=== PATIENT | male | born 1995 | race Caucasian/White ===

== ENCOUNTER → 2016-08-14 | Outpatient (CLI) | payer OTHER | LOC: BMCIMAGING 15:20 | PROVIDERS: ATTEND Emergency Medicine | DX: S69.92XA Unspecified injury of left wrist, hand and finger(s), initial encounter (principal) ==

== ENCOUNTER 2018-04-18 11:00 | Inpatient (IN) | payer OTHER ==
[~2018-04-18 11:00] MED LIST: VANCOMYCIN 1 GM in NS 250 ML IV ONE; VANCOMYCIN HCL/NORMAL SALINE 250 ML IV ONE; VANCOMYCIN PHARMACY TO DOSE MISC ONE
[2018-04-18] MEDS ORDERED: ACETAMINOPHEN 500 MG TAB PO ONE (12:24)
[2018-04-18] MEDS ORDERED: GABAPENTIN 300 MG CAP PO ONE (12:24)
[2018-04-18] MEDS ORDERED: LR 1,000 ML IV ONE (12:25)
[2018-04-18] MEDS ORDERED: LIDOCAINE 1% 2 ML INJ ID PRN (12:25)
[2018-04-18] MEDS ORDERED: CHLORHEXIDINE GLUC HIBICLENS 118 ML BTL TP ONE (13:24)
[2018-04-18] MEDS ORDERED: BUPIVACAINE/EPI 0.25% 30 ML SDV ONE (13:24)
[2018-04-18] MEDS ORDERED: THROMBIN (BOVINE) 5,000 UNIT VIAL TP ONE (13:24)
[2018-04-18] MEDS ORDERED: BACITRACIN 50,000 UNITS/10 ML SYR IRR ONE (13:24)
--- NOTE | 2018-04-18 14:19 | PDHPUP ---
History & Physical Update H&P update statement: This history and physical update is based on an assessment of the patient which was completed after admission or registration (within 24 hours), but prior to the surgery/procedure. H&P update: H&P reviewed & patient examined, no change in patient's condition since H&P completed
[2018-04-18] MEDS ORDERED: MIDAZOLAM 2 MG/2 ML VIAL IVP ONE (14:41)
--- NOTE | 2018-04-18 14:41 | PDANEPAE ---
ANE History of Present Illness Tarlov Cyst L5-S2 ANE Past Medical History - Cardiovascular History Hx Hypertension: No Hx Arrhythmias: No Hx Chest Pain: No Hx Coronary Artery / Peripheral Vascular Disease: No Hx CHF / Valvular Disease: No Hx Palpitations: No - Pulmonary History Hx COPD: No Hx Asthma/Reactive Airway Disease: No Hx Recent Upper Respiratory Infection: No Hx Oxygen in Use at Home: No Hx Sleep Apnea: No Sleep Apnea Screening Result - Last Documented: Negative - Neurologic History Hx Cerebrovascular Accident: No Hx Seizures: No Hx Dementia: No - Endocrine History Hx Diabetes: No Hypothyroid: No Hyperthyroid: No Obesity: no - Renal History Hx Renal Disorders: No Renal History Comment: URGENCY & OCCAS LEAKAGE W/CURRENT TUMOR - Liver History Hx Hepatic Disorders: No - Neurological & Psychiatric Hx Hx Neurological and Psychiatric Disorders: No - Cancer History Hx Cancer: No - Congenital Disorder History Hx Congenital Disorders: No - GI History GERD: no Hx Gastrointestinal Disorders: No Gastrointestinal History Comment: SENSIVIVE STOMACH - EASILY BECOMES NAUSEOUS - Other Health History Other Health History: NEG - Chronic Pain History Chronic Pain: No (CYST PAIN DOWN BACK OF LEGS) - Surgical History Prior Surgeries: BRAEDEN REMOVED FROM ESOPHAGUS. WISDOM TEETH ANE Review of Systems Review of systems is: negative Review of Systems: - Exercise capacity Exercise capacity: >=4 METS METS (RN): 5 METS ANE Patient History - Allergies Allergies/Adverse Reactions: amoxicillin Allergy (Verified 04/03/18 11:09) Other-Enter Comments Penicillins Allergy (Verified 04/03/18 11:09) Other-Enter Comments - Home Medications Home medications: home medication list seen and reviewed Home Medications: Cholecalciferol Vit D3 [Vitamin D3 2000 units tab (OTC)] 2,000 units PO DAILY [Last Taken 04/11/18] Loratadine 10 mg PO DAILY PRN 04/03/18 [Last Taken 03/19/18] Melatonin [Melatonin 3 MG (*)] 1 mg PO HS 04/18/18 [Last Taken Unknown] - NPO status NPO Status: no food or drink >8 hours NPO Since - Liquids (Date): 04/18/18 NPO Since - Liquids (Time): 07:00 NPO Since - Solids (Date): 04/17/18 NPO Since - Solids (Time): 21:00 - Anes Hx Anes Hx: no prior problems - Smoking Hx Smoking Status: Former smoker - Family Anes Hx Family Hx Anesthesia Complications: SISTER & DAD HAD ADVERSE EFFECTS W/VICODIN ANE Labs/Vital Signs - Vital Signs Vital Signs: reviewed preoperatively; see RN documention for details Blood Pressure: 127/77 Heart Rate: 79 Respiratory Rate: 20 O2 Sat (%): 98 Height: 181.61 cm Weight: 64.864 kg ANE Physical Exam - Airway Neck exam: FROM Mallampati Score: Class 1 Mouth exam: normal dental/mouth exam - Pulmonary Pulmonary: no respiratory distress - Cardiovascular Cardiovascular: regular rate and rhythym - ASA Status ASA Status: I ANE Anesthesia Plan Anesthesia Plan: general endotracheal anesthesia
[2018-04-18] MEDS ORDERED: PROPOFOL 200 MG/20 ML VIAL ONE (14:43)
[2018-04-18] MEDS ORDERED: fentaNYL 100 MCG/2 ML INJ ONE (14:43)
[2018-04-18] MEDS ORDERED: ONDANSETRON 4 MG/2 ML VIAL ONE ×2 (14:44)
[2018-04-18] MEDS ORDERED: LIDOCAINE 2% 5 ML SDV ONE (14:44)
[2018-04-18] MEDS ORDERED: ROCURONIUM 50 MG/5 ML VIAL ONE (14:44)
[2018-04-18] MEDS ORDERED: DEXAMETHASONE 4 MG/ML VIAL ONE ×2 (14:44)
[2018-04-18] MEDS ORDERED: PROPOFOL/EMULSION 500 MG/50 ML BOTTLE IV ONE ×2 (14:50→16:13)
[2018-04-18] MEDS ORDERED: LIDOCAINE 1% 2 ML INJ ONE (15:08)
[2018-04-18] MEDS ORDERED: AVITENE POWDER 1 GM JAR TP ONE (16:29)
[2018-04-18] MEDS ORDERED: NS 1,000 ML IV SCH (17:00)
[2018-04-18] MEDS ORDERED: LACTULOSE 20 GM/30 ML UDCUP PO PRN (17:00)
[2018-04-18] MEDS ORDERED: BISACODYL 10 MG SUPP PR PRN (17:00)
[2018-04-18] MEDS ORDERED: MAGNESIUM HYDROXIDE 30 ML UDCUP PO PRN (17:00)
[2018-04-18] MEDS ORDERED: ZOLPIDEM TARTRATE 5 MG TAB PO PRN (17:00)
[2018-04-18] MEDS ORDERED: CETIRIZINE 10 MG TAB PO PRN (17:00)
--- NOTE | 2018-04-18 17:12 | SOAPPROG ---
BIN Progress Note Assessment/Plan: Assessment: 22 yo M sp L5-S3 laminectomy with resection of arachnoid cyst Plan: stable hob flat until 04/23 with lumbar drain please drain 10-20 ml/hour from lumbar drain lovenox starts POD #1 please call with neuro changes 04/18/18 17:10 Subjective: + back pain, no leg pain. Objective: Vital Signs Temp Pulse Resp BP Pulse Ox 37.0 C 79 20 127/77 H 98 04/18/18 12:29 04/18/18 14:58 04/18/18 14:58 04/18/18 14:58 04/18/18 14:58 somnolent PERRL no facial droop 5/5 + light touch ICD10 Worksheet Patient Problems: Problems Problem Status Onset Arachnoid cyst of spine Acute - ICD10 Problem Qualifiers (1) Arachnoid cyst of spine
[2018-04-18] MEDS ORDERED: NALOXONE HCL 0.4 MG/ML INJ IVP PRN (17:18)
[2018-04-18] MEDS ORDERED: ONDANSETRON 4 MG/2 ML VIAL IVP PRN (17:18)
[2018-04-18] MEDS ORDERED: HYDROmorphONE/DILAUDID 1 MG/ML INJ IVP PRN (17:18)
[2018-04-18] MEDS ORDERED: fentaNYL 100 MCG/2 ML INJ IVP PRN (17:18)
[2018-04-18] MEDS ORDERED: DEXAMETHASONE 4 MG/ML VIAL IVP PRN (17:18)
--- NOTE | 2018-04-18 17:18 | POSTANESTH ---
Post Anesthetic Evaluation Cardiovascular Status: Normal, Stable Respiratory Status: Normal, Stable Level of Consciousness/Mental Status: Mildly Sleepy, Arousable Pain Control: Adequate, Prn Tx Ordered Nausea/Vomiting Control: Adequate, Prn Tx Ordered Complications Possibly Related to Anesthesia: None Noted
[2018-04-18] MEDS: FAMOTIDINE 20 MG TAB PO SCH (20:35)
[2018-04-18] MEDS: SENNOSIDES/DOCUSATE SODIUM TAB PO SCH (20:35)
[2018-04-18] MEDS: POLYETHYLENE GLYCOL 3350 17 GM PKT PO SCH (20:36)
[2018-04-18] MEDS: oxyCODONE IR 5 MG TAB PO PRN (21:08)
--- NOTE | 2018-04-18 22:07 | PDMN ---
Medical Necessity Medical necessity: Pt meets inpt criteria per MD order and [facility] [place] [facility], Lumbar Laminectomy, Medicare inpt only list. 22 y/o w/Tarlov cyst L5-S2 admitted for L5 -S3 laminectomy w/resection of arachnoid cyst, post-op care, est LOS>2MN.
[2018-04-19] MEDS: oxyCODONE IR 5 MG TAB PO PRN ×7 (00:23→23:12)
[2018-04-19] MEDS: diphenhydrAMINE 25 MG CAP PO PRN ×2 (00:23→12:39)
[2018-04-19] MEDS: VANCOMYCIN HCL/NORMAL SALINE 250 ML IV SCH ×2 (00:34→13:21)
--- NOTE | 2018-04-19 06:02 | NEUSURGPN ---
Assessment/Plan: Assessment: 22 yo M sp L5-S3 laminectomy with resection of arachnoid cyst Plan: stable hob flat until 04/23 with lumbar drain. okay to roll from side to side, bend knees please drain 10-20 ml/hour from lumbar drain lovenox starts POD #1, HOLD lovenox on 04/22 in prep for removing LD Bowel protocol pulmonary toilet please call with neuro changes Subjective: low back stiffness and ache. Denies any new leg pain, numbness, tingling or weakness. Objective: NAD A&Ox3 MAEx4 5/ and equal in BUE an BLE. incision c/d/i, flat. LD site clean and dry Catheter Insertion Date: 04/18/18 - Physician Discussed Patient with : [facility] Physical Exam - Vitals, I&O, Labs I and O 04/18/18 04/19/18 04/20/18 05:59 05:59 05:59 Output Total 151 Balance -151 Weight 64.864 kg Output: CSF Drainage Amount 151 Lumbar Drain 151 Vital Signs Temp Pulse Resp BP Pulse Ox 36.8 C 45 L 12 98/41 L 92 04/18/18 20:00 04/19/18 05:00 04/19/18 05:00 04/19/18 05:00 04/19/18 05:00 Laboratory Results 04/18/18 17:46 ICD10 Worksheet Patient Problems: Problems Problem Status Onset Arachnoid cyst of spine Acute
--- NOTE | 2018-04-19 06:40 | GOP ---
DATE OF OPERATION: 04/18/2018 SURGEON: Bennie Alcantara MD NEUROSURGEON: Bennie Alcantara MD. CABINET PROFESSIONAL: Nestor Lynn PA-C. ANESTHESIA: General endotracheal. PREOPERATIVE DIAGNOSIS: Large, compressive Tarlov cyst with progressive loss of neurologic function in the lower extremities. POSTOPERATIVE DIAGNOSIS: Large, compressive Tarlov cyst with progressive loss of neurologic function in the lower extremities. PROCEDURE PERFORMED: L5 and S1 laminectomies for open biopsy/resection of Tarlov cyst wall. Placeme nt of lumbar drain for therapeutic drainage of cerebral spinal fluid. Use of intraoperative microsco py and fluoroscopy. FINDINGS: ESTIMATED BLOOD LOSS: Trace. INDICATIONS: The patient is a 22-year-old man with progressive weakness and numbness in his lower ex tremities secondary to a very large Tarlov cyst causing significant erosion in the sacrum and mitul tyrone of the nerve root sleeves and thecal sac. He has failed extensive conservative care, and after detailed discussions with multiple neurosurgeons including all of my group and a professor at [employer], i t was felt to be in the best interest of the patient to explore the lesion and possibly drain it/rese ct it. The patient presents now for just that. DESCRIPTION OF PROCEDURE: After informed consent was obtained, the patient was taken to the operatin g room and placed in the prone position on the Minh frame. The lumbosacral area was prepped and dr aped in a sterile fashion. After fluoroscopic localization of the correct levels, the subcutaneous a nd intramuscular tissues were infiltrated with local anesthesia. A midline linear incision was then created over the L5 and S1 spinous processes. This was carried down to the fascial layer which was i ncised using monopolar electrocautery and carried in a subperiosteal plane along the spinous processe s and laminae bilaterally. Intraoperative fluoroscopy was again utilized to verify the correct level s. Following this, L5 and S1 laminectomies were performed, and an extremely large Tarlov cyst was id entified. The laminectomy defect was extended up to the inferior L4 area where there was normal dura . I attempted to find a communication between the cyst and the normal dura, but could not locate thi s and actually called two of my partners in to look at the lesion. Drs. João Rosas and Rodney Wynne came in, and we all looked at the films and the lesion under the microscope and determined that it w as in the best interest of the patient to open the cyst. This was performed, and the compressed thec al sac and nerve root sleeves were identified, but no further drainage of spinal fluid and no communi cation between the cyst and the normal dura were identified. The cyst wall was resected in its entir ety or as much as I could see anyway under high-power microscopy, and the remaining normal dura and n erve roots were intact. A lumbar drain had been placed in the standard fashion up at the L3-4 level prior to starting the surgery. The wound was then copiously irrigated with antibiotic irrigation, an d meticulous hemostasis was achieved. The paraspinal musculature was reapproximated gently with inte rrupted 0 Vicryl sutures. The fascia was then closed with running 0 Vicryl sutures, followed by inte rrupted subcutaneous Vicryl sutures and Dermabond on the skin. COMPLICATIONS: None. DISPOSITION: The patient is currently in the process of being repositioned for extubation. /[id number]/MODL
[2018-04-19] MEDS: FAMOTIDINE 20 MG TAB PO SCH ×2 (08:06→19:08)
[2018-04-19] MEDS: SENNOSIDES/DOCUSATE SODIUM TAB PO SCH ×2 (08:06→19:08)
[2018-04-19] MEDS: ENOXAPARIN 40 MG/0.4 ML SYR SC SCH (08:06)
[2018-04-19] MEDS: METHOCARBAMOL 750 MG TAB PO PRN ×3 (08:06→20:00)
[2018-04-19] MEDS: POLYETHYLENE GLYCOL 3350 17 GM PKT PO SCH ×3 (08:07→23:14)
--- NOTE | 2018-04-19 11:43 | GCON ---
DYE JIG OPERATOR CONSULTATION REASON FOR CONSULTATION: Patient examined postoperatively after receiving an L5 to S3 laminectomy wi th resection of arachnoid cyst. HISTORY: The patient is a 22-year-old white male without past medical history. He is, again, examin ed postoperatively after receiving an L5 to S3 laminectomy with resection of his arachnoid cyst. He is on bedrest for the next 5 days. In discussion with the patient, he states that overall he is doin g quite well. He states the pain is reasonably well tolerated. He is more comfortable lying on his left side. He denies any cough or production of sputum. There is no chest pain, pleuritic-type ches t pain or angina equivalent. There is no fever or night sweats. Overall, he is resting comfortably. REVIEW OF SYSTEMS: A 10-point review of systems is performed and negative, except for what is listed in the HPI. PAST MEDICAL HISTORY: None. ALLERGIES: Amoxicillin and penicillin. FAMILY HISTORY: Noncontributory. CURRENT MEDICATIONS: Include Tylenol, Dulcolax, Celebrex, Zyrtec, Benadryl, Lovenox, Pepcid, Neuront in, lactulose, milk of magnesia, Robaxin, Versed p.r.n., Zofran p.r.n., oxycodone, MiraLAX, Senokot, vancomycin, and Ambien. PHYSICAL EXAM: VITAL SIGNS: Blood pressure is 92/41. Pulse is 52, respirations 15. He is afebrile , oxygen saturation 93% on room air. GENERAL: He is a well-developed, well-nourished 22-year-old [facility] male who is resting comfortably, in no acute distress. HEENT: Eyes are PERRL, EOMI. Throat mara ws no erythema or tonsillar hypertrophy. NECK: Supple. There is no cervical adenopathy. HEART: R egular rate and rhythm, without murmurs, rubs, or gallops. LUNGS: Clear to auscultation. No wheeze s or rhonchi. ABDOMEN: Soft, nontender. Bowel sounds are present. EXTREMITIES: No clubbing, cyan osis, or edema. LABORATORIES: Creatinine 1.2. No other labs are available. IMPRESSION: 1. Status post L5 to S3 laminectomy with resection of arachnoid cyst. 2. Respiratory, stable. 3. Pain, well tolerated. RECOMMENDATIONS: 1. Continue adequate pain control. 2. DVT and PE prophylaxis. 3. Stress ulcer prophylaxis. 4. Aggressive pulmonary toilet. 5. His head of bed will be flat until April 23. /[id number]/MODL
--- NOTE | 2018-04-19 11:43 | ASMTCMCOM ---
CM Note CM Note Notes: Pt is a 22 y/o male admitted for arachnoid cyst of spine. Therapies have been ordered an awaiting recommendations. Anticipate that pt will d/c independent when medically stable. CM available for needs. Plan: Independent Date Signed: 04/19/2018 11:43 AM Electronically Signed By:MYAH Medina
[2018-04-19] MEDS: ACETAMINOPHEN 500 MG TAB PO SCH ×2 (16:55→23:13)
[2018-04-20] MEDS: oxyCODONE IR 5 MG TAB PO PRN ×6 (03:03→23:14)
[2018-04-20] MEDS: METHOCARBAMOL 750 MG TAB PO PRN ×4 (05:09→20:09)
--- NOTE | 2018-04-20 08:17 | NEUSURGPN ---
Date of Surgery: 04/18/18 Post Op Day: 2 Assessment/Plan: Assessment: 22 yo M sp L5-S3 laminectomy with resection of arachnoid cyst Plan: -neuro stable -hob flat until 04/23 with lumbar drain. okay to roll from side to side, bend knees -please drain 10-20 ml/hour from lumbar drain -lovenox starts POD #1, HOLD lovenox on 04/22 in prep for removing LD -Bowel protocol -pulmonary toilet -please call with neuro changes Subjective: Awake and alert. NAD. Eating/drinking and voiding. No f/c/n/v/d. Objective: NAD A&Ox3 MAEx4 5/ and equal in BUE an BLE. incision c/d/i, flat. LD site clean and dry Neuro Check Frequency: per routine Urinary Catheter in Place: No Urinary Catheter Indication: Other (Use Comment) (bed confined) Catheter Insertion Date: 04/18/18 - Physician Discussed Patient with : [facility] Physical Exam - Vitals, I&O, Labs I and O 04/19/18 04/20/18 04/21/18 05:59 05:59 05:59 Intake Total 2190 3350 Output Total 1801 3128 32 Balance 389 222 -32 Weight 64.864 kg Intake: Oral (ml) 750 2900 IV Intake (ml) 1440 450 Output: Urine (ml) 1650 2800 Catheter 1650 2800 CSF Drainage Amount 151 328 32 Lumbar Drain 151 328 32 Vital Signs Temp Pulse Resp BP Pulse Ox 37.1 C 56 L 13 112/61 97 04/20/18 00:00 04/20/18 07:00 04/20/18 07:00 04/20/18 07:00 04/20/18 07:00 Laboratory Results 04/18/18 17:46 ICD10 Worksheet Patient Problems: Problems Problem Status Onset Arachnoid cyst of spine Acute
[2018-04-20] MEDS: ACETAMINOPHEN 500 MG TAB PO SCH ×3 (08:59→23:57)
[2018-04-20] MEDS: FAMOTIDINE 20 MG TAB PO SCH ×2 (09:00→20:10)
[2018-04-20] MEDS: SENNOSIDES/DOCUSATE SODIUM TAB PO SCH ×2 (09:00→20:09)
[2018-04-20] MEDS: ENOXAPARIN 40 MG/0.4 ML SYR SC SCH (09:00)
[2018-04-20] MEDS: POLYETHYLENE GLYCOL 3350 17 GM PKT PO SCH ×3 (09:01→23:09)
--- NOTE | 2018-04-20 09:19 | PDINTPN ---
Security Systems Specialist Progress Note Assessment/Plan: Assessment/plan: * Back pain * Status post L5 that S3 laminectomy with resection of an arachnoid cyst -continue bedrest till 04/23 * Pain-well controlled * VTE prophylaxis * Stress ulcer prophylaxis * Nutrition-adequate Subjective: Resting comfortably Objective: Vital Signs Temp Pulse Resp BP Pulse Ox 37.1 C 53 L 11 L 102/51 L 92 04/20/18 00:00 04/20/18 09:00 04/20/18 09:00 04/20/18 09:00 04/20/18 09:00 Laboratory Results 04/18/18 17:46 04/19/18 04/20/18 04/21/18 05:59 05:59 05:59 Intake Total 2190 3350 Output Total 1801 3128 69 Balance 389 222 -69 - Time Spent With Patient Time Spent With Patient: 25 min of time spent with patient, over 1/2 involved with coordination of care or counseling Physical Exam - Physical Exam General Appearance: WD/WN, alert, no apparent distress EENT: PERRL/EOMI Neck: non-tender, supple Respiratory: chest non-tender, lungs clear, normal breath sounds Cardiac/Chest: normal peripheral pulses, regular rate, rhythm Peripheral Pulses: 2+: carotid (R), carotid (L), femoral (R), femoral (L), dorsalis-pedis (R), dorsalis-pedis (L) Abdomen: normal bowel sounds, non-tender, soft Male Genitalia: deferred Rectal: deferred Skin: normal color, warm/dry Extremities: non-tender Neuro/Psych: no motor/sensory deficits, alert, normal mood/affect, oriented x 3 ICD10 Worksheet Patient Problems: Problems Problem Status Onset Arachnoid cyst of spine Acute
--- NOTE | 2018-04-20 15:38 | ASMTCMCOM ---
CM Note CM Note Notes: 04/20/2018 Case Management Note Discussed pt during rounds this morning. Pt is on bedrest until 04/23. Awaiting therapy evals before creating discharge plan. Case Management d/c poc: to be determined. Case Management to follow. Date Signed: 04/20/2018 03:38 PM Electronically Signed By:Libby Wilson RN
[2018-04-20] MEDS: ONDANSETRON 4 MG/2 ML VIAL IVP PRN (20:15)
[2018-04-21] MEDS: METHOCARBAMOL 750 MG TAB PO PRN ×4 (01:59→20:11)
[2018-04-21] MEDS: oxyCODONE IR 5 MG TAB PO PRN ×5 (03:14→20:10)
[2018-04-21] MEDS: ACETAMINOPHEN 500 MG TAB PO SCH ×2 (08:05→16:09)
[2018-04-21] MEDS: FAMOTIDINE 20 MG TAB PO SCH ×2 (09:36→20:11)
[2018-04-21] MEDS: SENNOSIDES/DOCUSATE SODIUM TAB PO SCH ×3 (09:36→20:11)
[2018-04-21] MEDS: ENOXAPARIN 40 MG/0.4 ML SYR SC SCH (09:36)
[2018-04-21] MEDS: POLYETHYLENE GLYCOL 3350 17 GM PKT PO SCH ×3 (09:40→23:07)
--- NOTE | 2018-04-21 09:57 | PDINTPN ---
Card Processing Clerk Progress Note Assessment/Plan: Assessment/plan: * Back pain * Status post L5 that S3 laminectomy with resection of an arachnoid cyst -continue bedrest till 04/23 * Constipation-resolved * Pain-well controlled * VTE prophylaxis * Stress ulcer prophylaxis * Nutrition-adequate Subjective: Resting comfortably. No current complaints. Objective: Vital Signs Temp Pulse Resp BP Pulse Ox 37.3 C 78 14 113/60 96 04/21/18 08:00 04/21/18 09:00 04/21/18 09:00 04/21/18 08:00 04/21/18 09:00 Laboratory Results 04/18/18 17:46 04/20/18 04/21/18 04/22/18 05:59 05:59 05:59 Intake Total 3350 1900 Output Total 3128 4269 60 Balance 222 -2369 -60 - Time Spent With Patient Time Spent With Patient: 25 min of time spent with patient, over 1/2 involved with coordination of care or counseling. Physical Exam - Physical Exam General Appearance: WD/WN, alert, no apparent distress EENT: PERRL/EOMI, pharynx normal Neck: non-tender, full range of motion, supple, normal inspection Respiratory: chest non-tender, lungs clear, normal breath sounds Cardiac/Chest: normal peripheral pulses, regular rate, rhythm Peripheral Pulses: 2+: carotid (R), carotid (L), femoral (R), femoral (L), dorsalis-pedis (R), dorsalis-pedis (L) Abdomen: normal bowel sounds, non-tender, soft Male Genitalia: deferred Rectal: deferred Skin: normal color, warm/dry Extremities: normal range of motion, non-tender, normal inspection, normal capillary refill Neuro/Psych: no motor/sensory deficits, alert, normal mood/affect, oriented x 3 ICD10 Worksheet Patient Problems: Problems Problem Status Onset Arachnoid cyst of spine Acute
--- NOTE | 2018-04-21 11:18 | NEUSURGPN ---
Date of Surgery: 04/18/18 Post Op Day: 3 Assessment/Plan: Assessment: 22 yo M sp L5-S3 laminectomy with resection of arachnoid cyst Plan: -neuro stable -hob flat until 04/23 with lumbar drain. okay to roll from side to side, bend knees -please drain 10-20 ml/hour from lumbar drain -lovenox starts POD #1, HOLD lovenox on 04/22 in prep for removing LD -Bowel protocol -pulmonary toilet -please call with neuro changes Subjective: No lower extremity pain, numbness, tingling. Objective: Awake. Alert. PERRL. EOMI Incision with dressing c/d/i Muscle strength full at 5/5 Sensation intact Catheter Insertion Date: 04/18/18 Neurosurgery Physical Exam - Vitals, I&O, Labs I and O 04/20/18 04/21/18 04/22/18 05:59 05:59 05:59 Intake Total 3350 1900 Output Total 3128 4269 95 Balance 222 -5969 -95 Intake: Oral (ml) 2900 1900 IV Intake (ml) 450 0 Output: Urine (ml) 2800 3900 Catheter 2800 3900 CSF Drainage Amount 328 369 95 Lumbar Drain 328 369 95 Other: Number of Stools Catheter 1 Vital Signs Temp Pulse Resp BP Pulse Ox 37.3 C 65 14 113/60 93 04/21/18 08:00 04/21/18 11:00 04/21/18 11:00 04/21/18 08:00 04/21/18 11:00 Laboratory Results 04/18/18 17:46 ICD10 Worksheet Patient Problems: Problems Problem Status Onset Arachnoid cyst of spine Acute
[2018-04-21] MEDS: ONDANSETRON 4 MG/2 ML VIAL IVP PRN (12:48)
[2018-04-22] MEDS: ACETAMINOPHEN 500 MG TAB PO SCH ×3 (00:07→16:01)
[2018-04-22] MEDS: oxyCODONE IR 5 MG TAB PO PRN ×6 (00:10→22:40)
[2018-04-22] MEDS: ONDANSETRON DISINTEGRATING 4 MG TAB PO PRN (00:56)
[2018-04-22] MEDS: METHOCARBAMOL 750 MG TAB PO PRN ×4 (02:11→20:14)
[2018-04-22 05:26] LABS: PLATELET COUNT 198 10^3/uL (150-400)
[2018-04-22] MEDS: SENNOSIDES/DOCUSATE SODIUM TAB PO SCH ×2 (08:16→20:14)
[2018-04-22] MEDS: FAMOTIDINE 20 MG TAB PO SCH ×2 (08:17→20:14)
[2018-04-22] MEDS: POLYETHYLENE GLYCOL 3350 17 GM PKT PO SCH ×3 (08:32→18:39)
--- NOTE | 2018-04-22 08:45 | NEUSURGPN ---
Date of Surgery: 04/18/18 Post Op Day: 4 Assessment/Plan: Assessment: 22 yo M sp L5-S3 laminectomy with resection of arachnoid cyst Plan: -neuro stable -hob flat until 04/23 with lumbar drain. okay to roll from side to side, bend knees -please drain 10-20 ml/hour from lumbar drain -lovenox starts POD #1, HOLD lovenox on 04/22 in prep for removing LD -plan to remove lumbar drain tomorrow morning -Bowel protocol -pulmonary toilet -appreciate brick veneer maker following -please call with neuro changes Subjective: Having intermittent headache with nausea. No headache this morning. Objective: Awake. Alert. PERRL. EOMI Muscle strength full at 5/5 Sensation intact Catheter Insertion Date: 04/18/18 - Physician Discussed Patient with DrMasood: [facility] Physical Exam - Vitals, I&O, Labs I and O 04/21/18 04/22/18 04/23/18 05:59 05:59 05:59 Intake Total 1900 2345 Output Total 4269 3738 42 Balance -2369 -1393 -42 Intake: Oral (ml) 1900 1250 IV Intake (ml) 0 1095 Output: Urine (ml) 3900 3400 Catheter 3900 3400 CSF Drainage Amount 369 338 42 Lumbar Drain 369 338 42 Other: Number of Stools Catheter 1 Vital Signs Temp Pulse Resp BP Pulse Ox 36.8 C 52 L 13 101/45 L 90 L 04/22/18 08:00 04/22/18 08:00 04/22/18 08:00 04/22/18 08:00 04/22/18 08:00 Laboratory Results 04/22/18 05:15 04/22/18 05:15 ICD10 Worksheet Patient Problems: Problems Problem Status Onset Arachnoid cyst of spine Acute
--- NOTE | 2018-04-22 09:52 | PDINTPN ---
Carpenters Supervisor Progress Note Assessment/Plan: ASSESSMENT 22 yo M sp L5-S3 laminectomy with resection of arachnoid cyst # LE weakness due to arachnoid cyst s/p L5-S3 laminectomy with arachnoid cyst # prolonged immobility # post operative pain PLAN # hold lovenox today in anticipation of pulling lumbar drain 04/23 # head of bed flat until 04/23 # okay to been even roll from side to side # bowel regimen # pulmonary toilet # appreciate Neurosurgery management # Feeding - regular diet # Analgesia APAP, Robaxin, oxycodone, IV morphine # Sedation ambien prn # Thromboprophylaxis - holding Lovenox # Head of bed flat # Ulcer prophylaxis - not indicated # Glucose SSI # Skin no skin breakdown # Delirium - delirium precautions 04/22/18 12:53 Subjective: mild headache overnight. Resolved this AM. Complaining of mild back pain. no fevers, chills, nausea, vomiting, sob, new weakness. Objective: Vital Signs Temp Pulse Resp BP Pulse Ox 36.8 C 55 L 13 101/45 L 91 L 04/22/18 08:00 04/22/18 09:00 04/22/18 09:00 04/22/18 08:00 04/22/18 09:00 Laboratory Results 04/22/18 05:15 04/22/18 05:15 04/21/18 04/22/18 04/23/18 05:59 05:59 05:59 Intake Total 1900 2345 Output Total 4269 3738 50 Balance -2369 -1393 -50 Physical Exam - Physical Exam General Appearance: alert, no apparent distress EENT: PERRL/EOMI, normal ENT inspection Neck: non-tender, normal inspection Respiratory: chest non-tender, lungs clear, normal breath sounds Cardiac/Chest: normal peripheral pulses, regular rate, rhythm, No edema Abdomen: non-tender, soft Rectal: deferred Skin: normal color, warm/dry, No cyanosis Neuro/Psych: no motor/sensory deficits, alert (4+ to 5/5 strength in bilateral lower extremities. Intact sensation) ICD10 Worksheet Patient Problems: Problems Problem Status Onset Arachnoid cyst of spine Acute
[2018-04-23] MEDS: ACETAMINOPHEN 500 MG TAB PO SCH ×3 (00:07→17:26)
[2018-04-23] MEDS: METHOCARBAMOL 750 MG TAB PO PRN ×3 (02:10→14:58)
[2018-04-23] MEDS: oxyCODONE IR 5 MG TAB PO PRN ×4 (02:42→19:21)
--- NOTE | 2018-04-23 07:04 | NEUSURGPN ---
Date of Surgery: 04/18/18 Post Op Day: 5 Assessment/Plan: Assessment: 22 yo M sp L5-S3 laminectomy with resection of arachnoid cyst Plan: -neuro stable -lumbar drain removed this morning without difficulty. stitch placed -HOB flat until 0845 then may raise HOB by 10 degrees every hour until upright. Then may be out of bed -Please contact neurosurgery if patient develops headache -PT/OT once upright -Bowel protocol -appreciate flag car driver following -transfer to floor this afternoon if doing well Subjective: No headache this morning or LE symptoms. Doing well. Objective: Awake. Alert. PERRL. EOMI Incision c/d/i Muscle strength full at 5/5 Sensation intact Catheter Insertion Date: 04/18/18 Neurosurgery Physical Exam - Vitals, I&O, Labs I and O 04/22/18 04/23/18 04/24/18 05:59 05:59 05:59 Intake Total 2345 1250 Output Total 3738 3481 10 Balance -1393 -2231 -10 Intake: Oral (ml) 1250 1250 IV Intake (ml) 1095 Output: Urine (ml) 3400 3200 Catheter 3400 3200 CSF Drainage Amount 338 281 10 Lumbar Drain 338 281 10 Other: Number of Stools Catheter 1 Vital Signs Temp Pulse Resp BP Pulse Ox 37.1 C 54 L 14 99/58 L 91 L 04/22/18 21:00 04/23/18 06:27 04/23/18 06:27 04/23/18 06:27 04/23/18 06:27 Laboratory Results 04/22/18 05:15 04/22/18 05:15 ICD10 Worksheet Patient Problems: Problems Problem Status Onset Arachnoid cyst of spine Acute
[2018-04-23] MEDS: FAMOTIDINE 20 MG TAB PO SCH ×2 (08:24→19:21)
[2018-04-23] MEDS: SENNOSIDES/DOCUSATE SODIUM TAB PO SCH ×2 (08:24→19:21)
[2018-04-23] MEDS: POLYETHYLENE GLYCOL 3350 17 GM PKT PO SCH ×2 (09:11→17:27)
--- NOTE | 2018-04-23 09:25 | PDINTPN ---
Senior Game Developer Progress Note Assessment/Plan: ASSESSMENT 22 yo M sp L5-S3 laminectomy with resection of arachnoid cyst # LE weakness due to arachnoid cyst s/p L5-S3 laminectomy with arachnoid cyst # prolonged immobility # post operative pain PLAN # lumbar drain out this morning # progressive head of bed elevation until this afternoon # dissipate ambulation this afternoon as well as PT OT # bowel regimen # pulmonary toilet # appreciate Neurosurgery management # Feeding - regular diet # Analgesia APAP, Robaxin, oxycodone, IV morphine # Sedation ambien prn # Thromboprophylaxis - holding Lovenox # Head of bed flat # Ulcer prophylaxis - not indicated # Glucose controlled # Skin no skin breakdown # Delirium - delirium precautions # disposed-can transfer to [facility] this afternoon assuming all goes well 04/23/18 09:24 Subjective: Slept well last night. Lovenox held yesterday. Lumbar drain removed this morning. Patient states he generally slept well still has back pain but less so today. No nausea vomiting fevers or chills. Tolerating p.o.. Objective: Vital Signs Temp Pulse Resp BP Pulse Ox 37.1 C 54 L 14 99/58 L 91 L 04/22/18 21:00 04/23/18 06:27 04/23/18 06:27 04/23/18 06:27 04/23/18 06:27 Laboratory Results 04/22/18 05:15 04/22/18 05:15 04/22/18 04/23/18 04/24/18 05:59 05:59 05:59 Intake Total 2345 1250 Output Total 3738 3481 20 [facility] -1393 -2231 -20 Physical Exam - Physical Exam General Appearance: alert EENT: PERRL/EOMI, normal ENT inspection Neck: non-tender, full range of motion Respiratory: chest non-tender, lungs clear Cardiac/Chest: normal peripheral pulses, regular rate, rhythm Abdomen: normal bowel sounds, non-tender Skin: normal color, warm/dry Extremities: normal range of motion, non-tender Neuro/Psych: no motor/sensory deficits, alert, normal mood/affect, oriented x 3 , other (Lumbar bandage clean dry and intact) ICD10 Worksheet Patient Problems: Problems Problem Status Onset Arachnoid cyst of spine Acute
--- NOTE | 2018-04-23 14:19 | ASMTCMCOM ---
CM Note CM Note Notes: Patient's drain to be removed and HOB to begin to elevate. Therapies have not yet evaluated patient for discharge needs. Date Signed: 04/23/2018 02:18 PM Electronically Signed By:Rolanda Walters LCSW
[2018-04-23] MEDS: ONDANSETRON DISINTEGRATING 4 MG TAB PO PRN (15:19)
[2018-04-24] MEDS: POLYETHYLENE GLYCOL 3350 17 GM PKT PO SCH ×3 (01:11→09:13)
[2018-04-24] MEDS: METHOCARBAMOL 750 MG TAB PO PRN (02:15)
[2018-04-24] MEDS: ACETAMINOPHEN 500 MG TAB PO SCH ×3 (02:16→10:26)
[2018-04-24 02:20] VITALS: BP 115/67
--- NOTE | 2018-04-24 07:11 | NEUSURGPN ---
Date of Surgery: 04/18/18 Post Op Day: 6 Assessment/Plan: Assessment: 22 yo M sp L5-S3 laminectomy with resection of arachnoid cyst Plan: -neuro stable -lumbar drain removed and site looks good. Stitch in place -ambulating well -no HAs -d/w pt the need for no bending or twisting. No lifting more than 10 lbs -Please contact neurosurgery if patient develops headache -PT/OT pending this am -if clears therapies then can dc home later today -Bowel protocol -appreciate search engine marketing manager following -dc later today Subjective: Awake and alert. NAD. Eating/drinking and voiding. No f/c/n/v/d. No duran/neck/ chest/abd or gu complaints Objective: Awake. Alert. PERRLA. EOMI Incision c/d/i Muscle strength full at 5/5 incision clean and dry, no erythema or dc/swelling Sensation intact Neuro Check Frequency: per routine Urinary Catheter in Place: No Catheter Insertion Date: 04/18/18 - Physician Discussed Patient with : [facility] Physical Exam - Vitals, I&O, Labs I and O 04/23/18 04/24/18 04/25/18 05:59 05:59 05:59 Intake Total 1250 1390 Output Total 3481 570 Balance -2231 820 Intake: Oral (ml) 1250 1390 Output: Urine (ml) 3200 550 Catheter 3200 550 CSF Drainage Amount 281 20 Lumbar Drain 281 20 Other: Number of Voids Toilet 1 Number of Stools Toilet 0 Vital Signs Temp Pulse Resp BP Pulse Ox 37.1 C 68 18 115/67 95 04/24/18 02:15 04/24/18 02:15 04/24/18 02:15 04/24/18 02:15 04/24/18 02:15 Laboratory Results 04/22/18 05:15 04/22/18 05:15 ICD10 Worksheet Patient Problems: Problems Problem Status Onset Arachnoid cyst of spine Acute
[2018-04-24] MEDS: ENOXAPARIN 40 MG/0.4 ML SYR SC SCH (08:19)
[2018-04-24] MEDS: FAMOTIDINE 20 MG TAB PO SCH (08:19)
[2018-04-24] MEDS: SENNOSIDES/DOCUSATE SODIUM TAB PO SCH (09:13)
[2018-04-24] MEDS: oxyCODONE IR 5 MG TAB PO PRN (11:20)
--- NOTE | 2018-04-24 11:46 | ASMTLACE ---
LACE Length of stay for Answers: 4-6 days current admission Acuity / Level of Answers: Yes Care: Did the patient have an inpatient admission? # of Emergency department Answers: 0 visits in the last 6 months Score: 7 Date Signed: 04/24/2018 11:45 AM Electronically Signed By:Rolanda Walters LCSW
--- NOTE | 2018-04-24 11:49 | ASMTDCNOTE ---
Case Management Discharge Discharge Order Complete? Answers: Yes Patient to Obtain Answers: via Family Medications Transportation Arranged Answers: Family/Friends Transport will Pick (Date 04/24/2018 01:00 PM & Time) Family Notified Answers: Yes Notes: Family to transport Discharge Comments Notes: Patient has been discharged home. PT recommending out-pt therapy Date Signed: 04/24/2018 11:49 AM Electronically Signed By:Rolanda Walters LCSW
--- NOTE | 2018-04-24 11:52 | ASDISCHSUM ---
Discharge Information Plan Status:Home with No Needs Medically Cleared to Leave:04/23/2018 Discharge Date:04/23/2018 CM D/C Disposition:Home, Routine, Self-Care ADT D/C Disposition:Home, Routine, Self-Care Projected Discharge Date:04/24/2018 01:00 PM Transportation at D/C:Family Discharge Delay Reason: Follow-Up Date:04/24/2018 01:00 PM Discharge Slot:2 - 12:01 pm - 18:00 pm Final Diagnosis:L5-S3 [place] Placement Information Patient Contact Information Contact Name:HARRIET Relationship:Mother Address: Work Phone: City: [facility] Phone: State/[place] Code: Email: Financial Information Financial Class:HMO and PPO Plans Primary Plan Desc:[employer] Primary Plan Number:[id number] Secondary Plan Desc: Secondary Plan Number: Assessment Information [facility] CM Progress Note CM Note CM Note Notes: Pt is a 22 y/o male admitted for arachnoid cyst of spine. Therapies have been ordered an awaiting recommendations. Anticipate that pt will d/c independent when medically stable. CM available for needs. Plan: Independent Date Signed: 04/19/2018 11:43 AM Electronically Signed By:MYAH Medina [facility] CM Progress Note CM Note CM Note Notes: 04/20/2018 Case Management Note Discussed pt during rounds this morning. Pt is on bedrest until 04/23. Awaiting therapy evals before creating discharge plan. Case Management d/c poc: to be determined. Case Management to follow. Date Signed: 04/20/2018 03:38 PM Electronically Signed By:Libby Wilson RN [facility] CM Progress Note CM Note CM Note Notes: Patient's drain to be removed and HOB to begin to elevate. Therapies have not yet evaluated patient for discharge needs. Date Signed: 04/23/2018 02:18 PM Electronically Signed By:Rolanda Walters LCSW LACE LACE Length of stay for Answers: 4-6 days current admission Acuity / Level of Answers: Yes Care: Did the patient have an inpatient admission? # of Emergency department Answers: 0 visits in the last 6 months Score: 7 Date Signed: 04/24/2018 11:45 AM Electronically Signed By:Rolanda Walters LCSW Case Management Discharge Plan Note Case Management Discharge Discharge Order Complete? Answers: Yes Patient to Obtain Answers: via Family Medications Transportation Arranged Answers: Family/Friends Transport will Pick (Date 04/24/2018 01:00 PM & Time) Family Notified Answers: Yes Notes: Family to transport Discharge Comments Notes: Patient has been discharged home. PT recommending out-pt therapy Date Signed: 04/24/2018 11:49 AM Electronically Signed By:RAY TenorioW Intervention Information
== END 2018-04-24 12:45 | disposition home or self-care (01) | DRG 30 ==
LOC: F3E 11:54 → F2N 17:01 → UNDODISIN 04-19 11:55 → F2N 04-19 13:32
PROVIDERS: ADMIT Neurological Surgery; ATTEND Neurological Surgery
PROC: 00BT0ZZ Excision of Spinal Meninges, Open Approach (ICD-10-PCS; principal; 2018-04-18 13:30)
DX: G96.19 Other disorders of meninges, not elsewhere classified (principal)
CPT/HCPCS: 97161-GP; 97165-GO; J1100; J1650; J2250; J2270; J2405; J2704; J3010; J3370